=== PATIENT | female | born 1985 | race Caucasian/White ===

== ENCOUNTER 2016-10-01 20:55 | Emergency (ER) | payer OTHER ==
[~2016-10-01] VITALS: Ht 167.6 cm; Wt 79.0 kg
[~2016-10-01 20:55] MED LIST: INDOCIN25 MG PO
[2016-10-01] MEDS ORDERED: MELOXICAM15 MG PO (21:05)
[2016-10-01] MEDS ORDERED: DULOXETINE HCL60 MG PO (21:05)
[2016-10-01 21:28] LABS: HEMATOCRIT 40.6 % (37.0-47.0); HEMOGLOBIN 13.4 g/dl (12.0-16.0); IMMATURE GRANULOCYTES 0.2 % (0.0-1.0); MEAN CELL VOLUME 90.8 fL CALC (80.0-100.0); NEUT# 5.13 thou/uL (2.00-7.15); RED BLOOD COUNT 4.47 mill/uL (4.20-5.60); RED CELL DISTRI WIDTH 12.1 % (11.5-15.5)
[2016-10-01 21:29] LABS: URINE BILIRUBIN - DIPSTICK NEGATIVE (NEGATIVE); URINE BLOOD DIPSTICK TRACE-INTACT (NEGATIVE); URINE COLOR YELLOW; URINE GLUCOSE - DIPSTICK NEGATIVE (NEGATIVE); URINE KETONE TRACE mg/dL (NEGATIVE); URINE NITRITE - DIPSTICK NEGATIVE (Negative); URINE PROTEIN - DIPSTICK NEGATIVE (NEG-TRACE); URINE SPECIFIC GRAVITY 1.025
[2016-10-01 21:32] LABS: URINE CLARITY HAZY; URINE LEUK ESTERASE SMALL (NEGATIVE)
[2016-10-01 21:37] LABS: ALKALINE PHOSPHATASE 54 u/l (38-126); AMYLASE 44 u/l (30-110); ANION GAP 16 (6-22 (CALC)); BILIRUBIN, TOTAL 0.5 mg/dL (0.0-1.4); BUN 16 mg/dL (7-17); BUN/CREATININE RATIO 20 (12-20 (CALC)); CALCIUM 9.7 mg/dL (8.4-10.2); CARBON DIOXIDE 27 mmol/l (22-30); CHLORIDE 104 mmol/l (95-108); CREATININE 0.8 mg/dL (0.5-1.0); GFR > 60 ML/MIN (>=60 (CALC)); GFR FOR AFR.AMER. > 60 ML/MIN (>=60 (CALC)); GLUCOSE 105 mg/dL (65-105); LIPASE 53 u/l (23-300); POTASSIUM 4.1 mmol/l (3.5-5.1); SGOT/AST 19 u/l (14-36); SGPT/ALT 25 u/l (9-52); SODIUM 143 mmol/l (137-146); TOTAL PROTEIN 8.1 g/dL (6.3-8.2)
[2016-10-01 21:40] LABS: URINE SQUAMOUS EPITHELIAL CELL FEW EPI/hpf (0-FEW)
[2016-10-02] MEDS ORDERED: CIPROFLOXACN500 MG PO (00:03)
[2016-10-02] MEDS ORDERED: LORTAB 5/3255 MG PO (00:03)
[2016-10-02] MEDS ORDERED: ZOFRAN ODT4 MG PO (00:04)
[2016-10-02 00:19] VITALS: BP 110/56
== END 2016-10-02 00:19 | disposition home or self-care (01) | DRG 690 ==
LOC: ED 20:55
DX: N13.6 Pyonephrosis (principal); R11.0 Nausea; R10.31 Right lower quadrant pain

== ENCOUNTER 2016-10-05 18:08 | Emergency (ER) | payer OTHER ==
[~2016-10-05] VITALS: Ht 167.6 cm; Wt 79.0 kg
[~2016-10-05 18:08] MED LIST changes: +CIPROFLOXACN500 MG PO; +DULOXETINE HCL60 MG PO; +LORTAB 5/3255 MG PO; +MELOXICAM15 MG PO; +ZOFRAN ODT4 MG PO
[2016-10-05 18:46] LABS: HEMOGLOBIN 13.8 g/dl (12.0-16.0); IMMATURE GRANULOCYTES 0.2 % (0.0-1.0); MEAN CELL VOLUME 90.7 fL CALC (80.0-100.0); MEAN CORPUSCULAR HGB 30.5 pG CALC (26.0-32.0); MEAN CORPUSCULAR HGB CONC 33.7 g/L CALC (32.0-36.0); NEUT# 5.02 thou/uL (2.00-7.15); RED BLOOD COUNT 4.52 mill/uL (4.20-5.60); RED CELL DISTRI WIDTH 12.1 % (11.5-15.5); URINE BILIRUBIN - DIPSTICK NEGATIVE (NEGATIVE); URINE BLOOD DIPSTICK TRACE-INTACT (NEGATIVE); URINE COLOR YELLOW; URINE GLUCOSE - DIPSTICK NEGATIVE (NEGATIVE); URINE KETONE 15 mg/dL (NEGATIVE); URINE NITRITE - DIPSTICK NEGATIVE (Negative); URINE PH 6.5 (4.5-8.0); URINE PROTEIN - DIPSTICK TRACE mg/dL (NEG-TRACE); URINE SPECIFIC GRAVITY >=1.030
[2016-10-05 18:49] LABS: URINE CLARITY HAZY; URINE LEUK ESTERASE SMALL (NEGATIVE)
[2016-10-05 18:54] LABS: URINE SQUAMOUS EPITHELIAL CELL FEW EPI/hpf (0-FEW)
[2016-10-05 18:57] LABS: ALBUMIN 5.3 g/dL (3.2-5.0); ALKALINE PHOSPHATASE 60 u/l (38-126); AMYLASE 42 u/l (30-110); ANION GAP 20 (6-22 (CALC)); BILIRUBIN, TOTAL 0.6 mg/dL (0.0-1.4); BUN 17 mg/dL (7-17); BUN/CREATININE RATIO 21 (12-20 (CALC)); CALCIUM 9.8 mg/dL (8.4-10.2); CARBON DIOXIDE 25 mmol/l (22-30); CHLORIDE 102 mmol/l (95-108); CREATININE 0.8 mg/dL (0.5-1.0); GFR > 60 ML/MIN (>=60 (CALC)); GFR FOR AFR.AMER. > 60 ML/MIN (>=60 (CALC)); GLUCOSE 103 mg/dL (65-105); LIPASE 47 u/l (23-300); POTASSIUM 4.1 mmol/l (3.5-5.1); SGOT/AST 23 u/l (14-36); SGPT/ALT 33 u/l (9-52); SODIUM 142 mmol/l (137-146); TOTAL PROTEIN 8.4 g/dL (6.3-8.2)
[2016-10-05] MEDS ORDERED: PERCOCET1 TA2 PO (21:08)
[2016-10-05 21:40] VITALS: BP 114/70
== END 2016-10-05 21:42 | disposition home or self-care (01) | DRG 690 ==
LOC: ED 18:08
DX: N13.6 Pyonephrosis (principal); R10.11 Right upper quadrant pain
CPT/HCPCS: Q9967

== ENCOUNTER 2016-10-31 03:07 | Emergency (ER) | payer OTHER ==
[~2016-10-31] VITALS: Ht 167.6 cm; Wt 81.6 kg
[~2016-10-31 03:07] MED LIST changes: +PERCOCET1 TA2 PO
[2016-10-31] MEDS ORDERED: AMITRIPTYLIN25 MG PO (03:23)
[2016-10-31] MEDS ORDERED: CYCLOBENZAPR10 MG PO (03:24)
[2016-10-31] MEDS ORDERED: IMITREX50 M1 PO (03:24)
[2016-10-31] MEDS ORDERED: INDERAL 40MG TA40 MG PO (03:25)
[2016-10-31 04:42] LABS: HEMATOCRIT 34.9 % (37.0-47.0); HEMOGLOBIN 11.4 g/dl (12.0-16.0); IMMATURE GRANULOCYTES 0.3 % (0.0-1.0); MEAN CELL VOLUME 91.6 fL CALC (80.0-100.0); MEAN CORPUSCULAR HGB 29.9 pG CALC (26.0-32.0); MEAN CORPUSCULAR HGB CONC 32.7 g/L CALC (32.0-36.0); NEUT# 3.95 thou/uL (2.00-7.15); RED BLOOD COUNT 3.81 mill/uL (4.20-5.60); RED CELL DISTRI WIDTH 12.2 % (11.5-15.5); URINE BILIRUBIN - DIPSTICK NEGATIVE (NEGATIVE); URINE BLOOD DIPSTICK TRACE-INTACT (NEGATIVE); URINE CLARITY SLIGHT CLOUDY; URINE COLOR YELLOW; URINE GLUCOSE - DIPSTICK NEGATIVE (NEGATIVE); URINE KETONE NEGATIVE (NEGATIVE); URINE LEUK ESTERASE NEGATIVE (NEGATIVE); URINE NITRITE - DIPSTICK NEGATIVE (Negative); URINE PROTEIN - DIPSTICK NEGATIVE (NEG-TRACE); URINE UROBILINOGEN - DIPSTICK 0.2 E.U./dL (0.2)
[2016-10-31 04:57] LABS: ALBUMIN 4.2 g/dL (3.2-5.0); ALKALINE PHOSPHATASE 90 u/l (38-126); AMYLASE 60 u/l (30-110); ANION GAP 12 (6-22 (CALC)); BILIRUBIN, TOTAL 0.3 mg/dL (0.0-1.4); BUN 13 mg/dL (7-17); BUN/CREATININE RATIO 19 (12-20 (CALC)); CALCIUM 8.9 mg/dL (8.4-10.2); CARBON DIOXIDE 25 mmol/l (22-30); CHLORIDE 106 mmol/l (95-108); CREATININE 0.7 mg/dL (0.5-1.0); GFR > 60 ML/MIN (>=60 (CALC)); GFR FOR AFR.AMER. > 60 ML/MIN (>=60 (CALC)); GLUCOSE 99 mg/dL (65-105); LIPASE 56 u/l (23-300); POTASSIUM 4.1 mmol/l (3.5-5.1); SGOT/AST 91 u/l (14-36); SGPT/ALT 97 u/l (9-52); SODIUM 139 mmol/l (137-146); TOTAL PROTEIN 7.2 g/dL (6.3-8.2)
[2016-10-31] MEDS ORDERED: ULTRAM50 M1 PO (06:47)
[2016-10-31] MEDS ORDERED: PREVACID30 M1 PO (06:47)
[2016-10-31] MEDS ORDERED: ZOFRAN ODT4 MG PO (06:47)
[2016-10-31 06:59] VITALS: BP 111/70
== END 2016-10-31 07:04 | disposition home or self-care (01) | DRG 392 ==
LOC: ED 03:07
PROVIDERS: Emergency Medicine
DX: R10.13 Epigastric pain (principal); K29.70 Gastritis, unspecified, without bleeding; N83.201 Unspecified ovarian cyst, right side
CPT/HCPCS: Q9967; S0164

== ENCOUNTER 2017-05-09 18:38 | Emergency (ER) | payer OTHER ==
[~2017-05-09] VITALS: Ht 167.6 cm; Wt 104.8 kg
[~2017-05-09 18:38] MED LIST changes: +AMITRIPTYLIN25 MG PO; +CYCLOBENZAPR10 MG PO; +IMITREX50 M1 PO; +INDERAL 40MG TA40 MG PO; +PREVACID30 M1 PO; +ULTRAM50 M1 PO
[2017-05-09] MEDS ORDERED: PERCOCET 5/325M1 TAB PO (21:40)
[2017-05-09 21:56] VITALS: BP 114/65
== END 2017-05-09 21:53 | disposition home or self-care (01) | DRG 605 ==
LOC: ED 18:38
DX: S00.83XA Contusion of other part of head, initial encounter (principal); S16.1XXA Strain of muscle, fascia and tendon at neck level, initial encounter; W06.XXXA Fall from bed, initial encounter; Y92.003 Bedroom of unspecified non-institutional (private) residence as the place of occurrence of the external cause

== ENCOUNTER 2017-05-22 16:25 | Emergency (ER) | payer OTHER ==
[~2017-05-22] VITALS: Ht 167.6 cm; Wt 104.0 kg
[~2017-05-22 16:25] MED LIST changes: +PERCOCET 5/325M1 TAB PO
[2017-05-22 18:58] LABS: INFLUENZA A NONE DETECTED (NONE DETECT); INFLUENZA B NONE DETECTED (NONE DETECT)
[2017-05-22] MEDS ORDERED: CODEINE/GUAIFEN1 SOL PO (20:38)
[2017-05-22 20:40] VITALS: BP 121/66
== END 2017-05-22 20:40 | disposition home or self-care (01) | DRG 153 ==
LOC: ED 16:25
PROVIDERS: Emergency Medicine
DX: J06.9 Acute upper respiratory infection, unspecified (principal); M79.1 Myalgia; R05 Cough; R09.81 Nasal congestion; R50.9 Fever, unspecified; R19.7 Diarrhea, unspecified; R11.0 Nausea; R51 Headache